=== PATIENT | female | born 1960 | race Caucasian/White ===

== ENCOUNTER 2021-08-26 14:50 | Emergency (ER) | payer OTHER ==
[~2021-08-26] VITALS: Ht 165.1 cm; Wt 65.8 kg
[2021-08-26] MEDS ORDERED: NOHOMEMEDICATIONS (14:57)
[2021-08-26 15:24] LABS: ABSOLUTE EOSINOPHILS 0.1 thou/uL (0.0-0.7); ABSOLUTE LYMPHOCYTES 0.3 thou/uL (0.8-5.3); ABSOLUTE MONOCYTES 0.8 thou/uL (0.0-1.2); ABSOLUTE NEUTROPHILS 3.7 thou/uL (1.6-8.1); BASOPHILS 0.5 %; EOSINOPHILS 1.2 %; HEMATOCRIT 40.7 % (37.0-47.0); HEMOGLOBIN 13.9 gm/dL (12.0-15.0); LYMPHOCYTES 5.7 %; MCH 29.1 pg (26.0-34.0); MCV 85.6 fL (80.0-100.0); MONOCYTES 17.2 %; MPV 8.1 fl. (7.2-11.1); NUCLEATED RBCS 0 /100WBC; PLATELET COUNT* 238 thou/uL (150-400); POLYS 75.4 %; RBC 4.76 mil/uL (4.20-5.00); RDW-CV 13.4 % (10.5-14.5); WBC 4.9 thou/uL (4.0-11.0)
[2021-08-26 15:29] LABS: CALCIUM 8.7 mg/dL (8.5-10.1); CREATININE 0.9 mg/dL (0.6-1.3); POTASSIUM 3.2 mmol/L (3.5-5.1)
[2021-08-26 15:43] LABS: ALBUMIN 3.9 g/dL (3.4-5.0); TOTAL BILIRUBIN 0.3 mg/dL (<0.1-1.0); TOTAL PROTEIN 7.5 g/dL (6.4-8.2)
[2021-08-26] MEDS ORDERED: IBUPROFEN 800800 M1 PO (16:45)
[2021-08-26] MEDS ORDERED: FLEXERIL PO (16:45)
[2021-08-26 18:08] VITALS: BP 100/43
--- NOTE | 2021-08-27 11:19 | EKG ---
[place] [address] ELECTROCARDIOGRAM REPORT Name: KATT JACKSON Room: [facility]#: [id number] Admission: 08/26/21 Attend Phys: Discharge: 08/26/21 Date of : 64 Date of Service: 08/26/21 1539 Report #: [id number] THIS REPORT FOR: //name// [facility] ED Test Date: 2021-08-26 Test Time: 15:39:33 Pat Name: KATT JACKSON Department: Room: Gender: [facility] [employer]: CD : 1960 Requested By: Joaquina Murray Order Number: [id number] MD: Norberto Brannon Measurements Intervals [place] Rate: 60 P: 65 [place]: 137 QRS: 62 QRSD: 99 T: 9 QT: 433 QTc: 433 Interpretive Statements Sinus rhythm Possible anteroseptal infarct, old Minimal ST depression, inferior leads No previous ECG available for comparison Electronically Signed On 08-27-2021 11:18:53 CDT by Norberto Brannon [email or web address] <ELECTRONICALLY SIGNED> By: Norberto Brannon MD, FACC 08/27/21 1118 1539 1539 Norberto Brannon MD, [facility] /EPI
== END 2021-08-26 18:10 | disposition home or self-care (01) ==
LOC: M.ERS 14:50
PROVIDERS: Nurse Practitioner Family
DX: U07.1 COVID-19 (principal)